=== PATIENT | male | born 2000 | race Caucasian/White ===

== ENCOUNTER 2021-02-21 14:20 | Emergency (ER) | payer MEDICAID ==
[~2021-02-21] VITALS: Ht 167.6 cm; Wt 74.0 kg
--- NOTE | 2021-02-21 15:29 | PHYS DOC ---
Past History Additional Past Medical Histor: spina bifida, MRSA (JAIME COLE) Past Surgical History: Other Additional Past Surgical Histo: shunt, knee surgery x 2 (JAIME COLE) Alcohol Use: None (JAIME COLE) General Adult EDM: Chief Complaint: ANXIETY/PANIC ATTACK HPI: HPI: Patient is a 20 year old male with history of spina bifida, chronic pain and anxiety who presents with multiple complaints. Patient was brought in via EMS after a verbal altercation with his mother at home, in which the police were called. Patient is concerned because he had high blood pressure at home, pain in his back that is chronic in nature and he had a "mild panic attack." Patient states he was diagnosed with hypertension over 2 years ago and was told that if he lost 30 pounds, he could start taking medication. The medication is still prescribed, but he lost weight so he no longer takes it. He reports that he has a primary doctor in [place] that prescribes him high blood pressure and pain medications. Patient sees [facility] in March for MRI regarding his back pain and possible sciatica. Next week he has appointments with infectious disease and wound care regarding treatment for a a chronic pressure ulcer on his left foot. (JAIME COLE) Review of Systems: Review of Systems: ROS negative or noncontributory except as mentioned in HPI. (JAIME COLE) Current Medications: Current Meds: Current Medications Medications (Trade) Dose Ordered Sig/Vinnie Start Time Stop Time Status Last Admin Dose Admin Ketorolac Tromethamine (Toradol Im) 60 mg 1X ONCE 02/21/21 15:30 02/21/21 15:31 Orphenadrine Citrate (Norflex) 60 mg 1X ONCE 02/21/21 15:30 02/21/21 15:31 (JAIME COLE) Allergies: Allergies: Allergies Coded Allergies Type Severity Reaction Last Updated Verified latex Allergy Unknown 02/21/21 Yes (JAIME COLE) Physical Exam: PE: Constitutional: Well developed, well nourished, no acute distress, patient is small for his age and posture is consistent with spina bifida diagnosis. Cardiovascular: Heart rate regular rhythm, no murmur. Lungs & Thorax: Bilateral breath sounds clear to auscultation. Skin: See extremity exam below below for pressure ulcer to left foot. Skin otherwise warm, dry, no erythema, no rash. Back: No midline tenderness, paraspinal spasm noted bilaterally on low back. Extremities: No tenderness, no cyanosis, patient's bilateral lower extremities are atrophied consistent with baseline. Pressure ulcer noted at the MTP joint of digit 1 on the left foot which has no active bleeding/necrotic tissue/pur ulent drainage, minimal surrounding erythema that is not hot to the touch. (JAIME COEL) Current Patient Data: Vital Signs: Vital Signs Date Time Temp Pulse Resp B/P (MAP) Pulse Ox O2 Delivery O2 Flow Rate FiO2 02/21/21 16:32 85 18 129/83 (98) 98 02/21/21 14:31 98.0 111 18 172/99 (123) 100 Room Air (JAIME COLE) Heart Score: C/O Chest Pain: No (JAIME COLE) Course & Med Decision Making: Course & Med Decision Making Pertinent Labs and Imaging studies reviewed. (See chart for details) Patient is a 20-year-old male with history of spina bifida, MRSA infection and anxiety who presents with multiple complaints. Patient does have elevated blood pressure on arrival. We will treat the patient's pain and reevaluate. Patient's blood pressure significantly improved after medication administration. Had a long conversation with the patient about his follow-up care and the need to keep his appointments with his regular specialist and primary care. Patient understands and is agreeable to discharge plan. (JAIME COLE) Dragon Disclaimer: Dragon Disclaimer: This electronic medical record was generated, in whole or in part, using a voice recognition dictation system. (JAIME COLE) Attending Co-Sign The patient was seen and interviewed as well as examined at the bedside. The chart was reviewed. The case was discussed. Agree with the plan of care. (TROY STARK DO) Departure Departure: Impression: Primary Impression: Chronic back pain greater than 3 months duration Additional Impressions: Anxiety about health Pressure ulcer of left foot Qualified Codes: L89.899 - Pressure ulcer of other site, unspecified stage Disposition: HOME / SELF CARE / HOMELESS Condition: IMPROVED Referrals: PCP,NO (PCP) Patient Instructions: Anxiety and Panic Attacks, [id number], Spina Bifida Additional Instructions: EMERGENCY DEPARTMENT GENERAL DISCHARGE INSTRUCTIONS THANK YOU for coming to [facility] emergency Department (ED) today and trusting us with your care. We trust that you had a positive experience in our Emergency Department. YOUR FOLLOW UP INSTRUCTIONS ARE FOLLOWS: Do you have a private doctor? If you do not have a private doctor, please ask for a resource list of physicians or clinics that may be able to assist you with follow up care. The Emergency Physician has interpreted your x-rays. The X-ray specialist will also review them. If there is a change in the findings you will be notified in 48 hours when at all possible. A lab test or lab culture may have been done, your results will be reviewed and you will be notified if you need a change in treatment. ADDITIONAL INSTRUCTIONS AND INFORMATION Your care today has been supervised by a physician who is specially trained in emergency care. Many problems require more than one evaluation for a complete diagnosis and treatment. We recommend that you schedule your follow up appointment as recommended to ensure complete treatment of your illness or injury. If you are unable to obtain follow up care and continue to have a problem, or if your condition worsens we recommend that you return to the ED. We are not able to safely determine your condition over the phone nor are we able to give sound medical advice over the phone. For these safety reasons, if you call for medical advice we will ask you to come to the ED for further evaluation If you have any questions regarding these discharge instructions please call the ED at . SAFETY INFORMATION In the interest of safety, wellness, and injury prevention; we encourage you to wear your seatbelt, if you smoke; quit smoking, and we encourage your family to use protective helmet for bicycling and other sporting events that present an increased risk for head injury. IF YOUR SYMPTOMS WORSEN OR NEW SYMPTOMS DEVELOP, OR YOU HAVE CONCERNS ABOUT YOUR CONDITION; OR IF YOUR CONDITION WORSENS WHILE YOU ARE WAITING FOR YOUR FOLLOW UP APPOINTMENT; EITHER CONTACT YOUR PRIMARY CARE DOCTOR, THE PHYSICIAN WHOSE NAME AND NUMBER YOU WERE GIVEN, OR RETURN TO THE ED IMMEDIATELY. JAIME COLE Feb 21, 2021 15:29 TROY STARK DO Feb 23, 2021 01:22
[2021-02-21] MEDS ORDERED: KETOROLAC 60 MG/2 ML VIAL. IM ONE (15:30)
[2021-02-21] MEDS ORDERED: ORPHENADRINE CITRATE 60 MG/2 ML VIAL. IM ONE (15:30)
[2021-02-21 16:32] VITALS: BP 129/83
== END 2021-02-21 16:46 | disposition home or self-care (01) ==
LOC: ER 14:20 → EDBD 14:20 → ER 16:46
DX: F41.9 Anxiety disorder, unspecified (principal); G89.29 Other chronic pain; L89.899 Pressure ulcer of other site, unspecified stage; I10 Essential (primary) hypertension; Z86.14 Personal history of Methicillin resistant Staphylococcus aureus infection; Z91.040 Latex allergy status
CPT/HCPCS: 96372; 99284; J1885; J2360